=== PATIENT | female | born 1985 | race Native Hawaiian/Other Pacific Islander ===

== ENCOUNTER 2016-08-16 10:26 | Emergency (ER) | payer OTHER ==
[~2016-08-16] VITALS: Ht 160 cm; Wt 72.6 kg
[2016-08-16 13:49] VITALS: BP 136/80; TEMP 98.1
== END 2016-08-16 13:56 | disposition home or self-care (01) ==
LOC: ED 10:26
PROC: 2W3LX1Z Immobilization of Right Lower Extremity using Splint (ICD-10-PCS; principal; 2016-08-16)
DX: S82.191A Other fracture of upper end of right tibia, initial encounter for closed fracture (principal); W18.39XA Other fall on same level, initial encounter; Y93.89 Activity, other specified; Y92.098 Other place in other non-institutional residence as the place of occurrence of the external cause
CPT/HCPCS: 99283; L1830

== ENCOUNTER 2016-11-08 09:30 | Inpatient (IN) | payer OTHER ==
[2016-11-08] VITALS (21 sets, daily range): BP systolic 92–137; BP diastolic 36–75; TEMP 97.5–98.4; Ht 157.5 cm; Wt 70.8 kg
[~2016-11-08] VITALS: Ht 157.5 cm; Wt 70.8 kg
[2016-11-08 10:13] LABS: PLATELET COUNT 220 K/uL (152-353)
[2016-11-08 10:31] LABS: POTASSIUM 2.6 mmol/L (3.6-5.2); SODIUM 133 mmol/L (136-145)
--- NOTE | 2016-11-08 12:30 | NUR ---
RECEIVED PT FROM ER VIA STRETCHER. PT DROWSY, PT HELPED STAFF MOVE TO ICU BED. PT'S SKIN DIAPHORETIC. FSBS <20. 1AMP OF D50 GIVEN. PLACED PT ON ICU MONITORS. SR NOTED. PT HAS A 20G IV IN L HAND WITH D5NS INFUSING @ 175ML/HR. PT HAS A LE TO BSD WITH CLOUDY YELLOW URINE. WILL NOTIFY DR. HANSEN.
--- NOTE | 2016-11-08 13:15 | NUR ---
DR. HANSEN NOTIFIED PER BRE TAVERAS RN. NEW ORDERS RECEIVED.
--- NOTE | 2016-11-08 14:28 | NUR ---
FSBS <20. D50 GIVEN 1 AMP.
[2016-11-08 14:51] LABS: POTASSIUM 2.5 mmol/L (3.6-5.2); SODIUM 137 mmol/L (136-145)
--- NOTE | 2016-11-08 15:00 | NUR ---
LAB RESULT BACK BMP GLUCOSE 31 POTASSIUM 2.5 NOTOIFIED PHARMACY. D 10NS INFUSING AT 175 ORDERED. PT RESTING QUIETLY WILL RESPOND TO VERBAL. FAMILY MEMBERS CHECKED AT DOOR NO VISITORS AT THIS TIME.
--- NOTE | 2016-11-08 16:14 | NUR ---
PT RESTING QUIETLY. IV FLUIDS INFUSING WITHOUT DIFFICULTY. PT EASY TO AWAKEN, BLOOD SUGAR 28. PT RECIEVED 1 AMP D50. PT ALSO RECIEVED CANDY AND HONEY BUN. TAKING A FEW BITES. WILL MONITOR CLOSELY.
--- NOTE | 2016-11-08 17:15 | NUR ---
PT RESTING QUIETLY BLOOD SUGAR 133. IV FLUIDS CONTINUE WITHOUT DIFFICULTY.
[2016-11-08 18:00] LABS: SODIUM 138 mmol/L (136-145)
--- NOTE | 2016-11-08 18:00 | NUR ---
DR HANSEN VISITED CHECKED PT RECIEVED ORDERS. PT RESTING QUIETLY. ATE ABOUT HALF SUPPER TRAY HAROLDO WELL. SAT 100% ON ROOM AIR. NO ACUTE RESP PROBLEMS NOTED.
--- NOTE | 2016-11-08 19:15 | NUR ---
BLOOD SUGAR 120, REPORT TO ONCOMING SHIFT. D10 NS CONTINUES INFUSING AT 175 ML HR.
--- NOTE | 2016-11-08 19:30 | NUR ---
RCD PT AWAKE ALERT WATCHING TV SANDRA LE SR RM AIR RESTING O2 SAT 100.
--- NOTE | 2016-11-08 20:00 | NUR ---
FSBS 122 RESP STARTED COOL AEROSAL HAROLDO MONITOR SR. ALERT WATCHING TV. DR HANSEN CALLED [facility].
--- NOTE | 2016-11-08 21:00 | NUR ---
FSBS 89 AWAKE/ALERT GIVEN 120CC APPLE JUICE.MONITOR SR COOL AEROSAL CONTINUES.
--- NOTE | 2016-11-08 22:00 | NUR ---
AWAKE /ALERT FSBS 84 ATE 1/2 CINNAMON BUN AND COKE. BLOOD DRAWN TO LAB HAROLDO MONITOR SR CONT ON COOL AEROSAL.
[2016-11-08 22:27] LABS: POTASSIUM 3.8 mmol/L (3.6-5.2); SODIUM 138 mmol/L (136-145)
--- NOTE | 2016-11-08 23:09 | NUR ---
FSBS 65 AWAKE ALERT ATE CINNAMON CAKE/APPLE JUICE MONITOR 103 GETTING ANXOU S TO BE AWAKEN EACH HOUR FOR BS.
[2016-11-09] VITALS (21 sets, daily range): BP systolic 96–136; BP diastolic 51–77; TEMP 98.2–98.7
--- NOTE | 2016-11-09 | NUR ---
AWAKE ALERT SKIN WARM/DRY FSBS 62 DRANK 120CC APPLE JUICE MONITOR SR,O2 SAT 100,RESTING.
--- NOTE | 2016-11-09 01:07 | NUR ---
AWAKE ALERT FSBS 237 SKIN WARM/DRY RESTING WILL MONITOR CLOSE
--- NOTE | 2016-11-09 02:00 | NUR ---
LAB DRAWN BS 59 C/O PAIN AT IV SITE NEW IV 20 G X3 R FA RESTARTED DEXTROSE 50% 1AMP.WARM COMPRESSES STARTED TO L FA
[2016-11-09 02:28] LABS: POTASSIUM 3.7 mmol/L (3.6-5.2); SODIUM 138 mmol/L (136-145)
--- NOTE | 2016-11-09 03:18 | NUR ---
DR JADE SHIRLEY BS 56 ASYMPTOMATIC APPLE JUICE 150 CC GIVEN IV PATENTWILL RECHECK 30MIN.
--- NOTE | 2016-11-09 03:30 | NUR ---
FSBS 73 ASYMPTOMATIC ALERT ORIENTED SKIN WARM/DRY WARM COMPRESSES L ARM AND ELEVATED RESTING WATCHING TV
--- NOTE | 2016-11-09 04:00 | NUR ---
FSBS 72 ALERT RESTING IV PATENT WARM COMPRESSES L ARM
--- NOTE | 2016-11-09 04:26 | NUR ---
WARM COMPRESSED TAKEN OFF SWELLING LESS ELEVATED ON PILLOW MONITOR SR, O2 SAT 99 COOL MIST OFF TEMPORARY
--- NOTE | 2016-11-09 05:00 | NUR ---
FSBS 52 DIAPHORETIC ALERT MONITOR SR O2 SAT 99 .IV IN L HAND D/C ELEVATED ON PILLOWS LESS SWELLING BUT CONT TO HURT WHEN TOUCHED.
--- NOTE | 2016-11-09 06:00 | NUR ---
FSBS 50 DEXTROSE 50% 25CC IV DRANK 120CC APPLE JUICE ALERT SKIN WARM DRY OUTPUT 800CC CLOUDY YELLOW URINE
--- NOTE | 2016-11-09 06:29 | NUR ---
LAB UNSUCCESFUL DRAWING BLOOD WILL CONT TO TRY.
--- NOTE | 2016-11-09 07:03 | NUR ---
blood drawn TOLAB FSBS 87
[2016-11-09 07:23] LABS: PLATELET COUNT 200 K/uL (152-353)
[2016-11-09 07:54] LABS: POTASSIUM 3.8 mmol/L (3.6-5.2); SODIUM 138 mmol/L (136-145)
--- NOTE | 2016-11-09 09:00 | NUR ---
AM ASSESSEMENT DONE. DR HANSEN CALLED RECIEVED REPORT PT CONDITION. IV FLUIDS CONTINUE, BLOOD SUGAR 46. PT EATING BREAKFAST D10 CONTINUES AT 150 ML HR WILL HOLD D50 NOW AND CONTINUE TO ENCOURAGE PT TO EAT.
--- NOTE | 2016-11-09 11:37 | NUR ---
PT ATE WELL BLOOD SUGAR 93. IV FLUIDS AT 150. RESTING QUIETLY AWAKENS TO VERBAL. FAMILY CALLED CONTINUE TO HOLD VISITATION.
--- NOTE | 2016-11-09 13:49 | NUR ---
ATE 75% LUNCH TRAY HAROLDO WELL. BMP/MG OBTAINED AT THIS TIME. PT RESTING QUIETLY AWAKENS EASILY. EATING WELL.
[2016-11-09 13:58] LABS: POTASSIUM 4.2 mmol/L (3.6-5.2); SODIUM 138 mmol/L (136-145)
--- NOTE | 2016-11-09 14:53 | NUR ---
BMP AND MAG RESULTS BACK. CALLED TO PHARMACY, WILL NEED TO CONTINUE D10 NS. MAY ADJUST RATE. PT'S BLOOD SUGAR MAY STILL GO DOWN. CURRENT BLOOD SUGAR 73. PT SLEEPING WILL WAKE PT UP TO TAKE A SNACK.
--- NOTE | 2016-11-09 17:28 | NUR ---
ATE JELLO DRINKING JUICE. D10NS CONTINUES AT 150 ML HR. BLOOD SUGAR 71. PT'S FAMILY STOPPED BY, WANTED TO KNOW HOWSHE WAS DOING. DID NOT COME IN TO VISIT. PT STILL NOT ALLOW TO HAVE ANY VISITORS.
--- NOTE | 2016-11-09 18:38 | NUR ---
DR HANSEN VISITED, CHECKED PT RECIEVED NEW ORDERS IV FLUIDS TURNED DOWN TO 100 ML HR. CONTINUE TO ENCOURAGE PT TO EAT AND TAKE PO FLUIDS.
--- NOTE | 2016-11-09 19:06 | NUR ---
D10 NS AT 100 ML HR. BLOOD SUGAR 65. PT TAKING SIPS APPLE JUICE. WILL ALSO TAKE 1 CAN ENSURE PLUS. CONTINUE TP MONITOR.
[2016-11-10] VITALS (18 sets, daily range): BP systolic 102–132; BP diastolic 54–84; TEMP 98.1–98.4
[2016-11-10 05:58] LABS: POTASSIUM 4.2 mmol/L (3.6-5.2); SODIUM 138 mmol/L (136-145)
--- NOTE | 2016-11-10 06:47 | NUR ---
0500 NEW IV STARTED DUE TO PAIN AND EDEMA IN RIGHT HAND IV SITE IN RIGHT HAND SALINE LOCKED GOOD BLOOD RETURN STILL TO SITE WARM COMPRESS ADDED TO HAND.
[2016-11-10 07:06] LABS: PLATELET COUNT 216 K/uL (152-353)
--- NOTE | 2016-11-10 09:22 | NUR ---
PT UP TO BR.GAIT STEADY.
--- NOTE | 2016-11-10 14:40 | NUR ---
Joseph Arceo, Hospital Pharmacist, at bedside assessing Pt. She ordered Pt's D10 fluids be reduced to 50ml for 1 hour. If Pt's blood sugar maintains, reduce D10 to 25ml/hr for 1 hour. If Pt's blood sugar maintains, fluids may be d/c'd noted and carried out. D10 reduced to 50ml/hr at this time. Will continue to monitor blood sugar and Patient.
--- NOTE | 2016-11-10 15:40 | NUR ---
Assisted Pt to up to bedside chair with no difficulties. Andrea arms propped on pillows, warm compresses placed on andrea arms, andrea feet propped on pillows. Pt v/o her appreciation for helping her get out of the bed. Linens changed at this time.
--- NOTE | 2016-11-10 15:50 | NUR ---
Pt's blood sugar is 143. Pt's D10 rate is decreased to 25ml/hr. Pt tolerating well. Will continue to monitor Pt.
--- NOTE | 2016-11-10 16:55 | NUR ---
Pt's blood sugar is 137. IV fluids d/c'd at this time. Pt heplocked. Pt expressed her appreciation.
--- NOTE | 2016-11-10 18:10 | NUR ---
Dr. Juarez at bedside and ordered bladder training to begin at this time. Order noted and carried out and bladder training began at this time.
--- NOTE | 2016-11-10 19:40 | NUR ---
Dr. Juarez at bedside and ordered bladder tranning to be started at this time, v/o understanding and acknowledged same.
--- NOTE | 2016-11-10 20:15 | NUR ---
Bladder training completed at this time. Pt tolerated well.
--- NOTE | 2016-11-10 21:10 | NUR ---
Shelia d/keaton'lacey at this time. Pt tolerated well and expressed the relief she feels.
--- NOTE | 2016-11-10 22:14 | NUR ---
Dr. Juarez notified of pt's blood glucose level. Orders given to change to Q4 hours at this time.
--- NOTE | 2016-11-10 23:21 | NUR ---
Pt resting in bed. No distress noted. VSS per monitor. Will continue to monitor.
[2016-11-11] VITALS (11 sets, daily range): BP systolic 104–131; BP diastolic 41–85; TEMP 98–98.2
--- NOTE | 2016-11-11 00:58 | NUR ---
Pt resting in bed with eyes closed. No change in assessment. Will continue to monitor.
[2016-11-11 07:11] LABS: PLATELET COUNT 221 K/uL (152-353)
[2016-11-11 07:30] LABS: POTASSIUM 4.4 mmol/L (3.6-5.2); SODIUM 140 mmol/L (136-145)
--- NOTE | 2016-11-11 08:00 | NUR ---
RESTING OK THIS AM. CHECKED IV HL FLUSHED PT STATED THAT THEY HURT REAL BAD, PULLED AWAY NOTED SWELLING IN BOTH ARMS IV HEPLOCK REMOVED NO REDNESS NO SIGNS OF INFECTION AT SITE, WILL HOLD RESTART UNTIL I CAN TALK WITH DR HANSEN. PT ATE SOME BREAKFAST HAROLDO WELL BLOOD SUGAR 99 THIS AM.
--- NOTE | 2016-11-11 11:15 | NUR ---
DR HANSEN CALLED RECIEVED REPORT, RECIEVED NEW ORDERS MAY LEAVE IV OUT. CHANGED MEDS TO PO.
--- NOTE | 2016-11-11 13:15 | NUR ---
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 [facility]. PT UP IN ROOM VISITORS ALLOWED MOTHER VISITED. GOING TO BR. APPEARS TO BE DOING BETTER. BLOOD SUGAR 105, PT EATING WELL.
--- NOTE | 2016-11-11 13:30 | NUR ---
CALLED TO [facility], SPOKE WITH RADHA, RECIEVED REPORT, ASKED SEVERAL QUESTIONS. WAS TOLD THAT SINCE PT HAD INSURANCE THAT I COULD CALLED AND SEEK PLACEMENT. RADHA GAVE ME THE NAME AND PHONE NUMBERS OF [facility].
--- NOTE | 2016-11-11 14:00 | NUR ---
CALLED BACK TO MADDI DERAS AT [facility] INFORMED HER ABOUT CRISIS CENTER, WAS TOLD THAT PT'S FAMILY AND PROBATE MAY HAVE FOUND PLACEMENT. CALLED TO DR HANSEN, IN FORMED HER ABOUT PLACEMENT, STATED THAT PT WAS MEDICALLY CLEAR TO GO. ALSO ASKED IF THEY TREATED SUICIDE. TOLD DR HANSEN THAT I WOULD CALL TO FIND OUT.
--- NOTE | 2016-11-11 15:00 | NUR ---
HAVE CALLED [facility] FROM [facility] IN [place] NO ANSWER. TALK WITH PT AND HER GRANDMOTHER. WHOM HAVE ASSISTED [facility] IN FINDING PLACEMENT. RECIEVED COPY/ INFORMATION ABOUT REHAB CENTER, COPY ON CHART.
--- NOTE | 2016-11-11 15:30 | NUR ---
ASKED [facility] FOR ASSISTANCE. TO ASSIT WITH PHONE CALLS. PT UP IN ROOM NO COMPLAINTS ON PHONE TALKING WITH FAMILY MEMBERS.
--- NOTE | 2016-11-11 17:09 | NUR ---
SPOKE WITH CAROLYN AGAIN HAS NOT BEEN ABLE TO TALK WITH ANYONE. SPOKE WITH FAMILY. TOLD PT THAT SHE WOULD HAVE TO STAY IN ICU IF PLACEMENT COULD NOT BE FOUND TODAY.
--- NOTE | 2016-11-11 17:48 | NUR ---
TALKED WITH YAZMIN, ABOUT PT TRANSFER, CALLED TO PT'S MOTHER. SHE TOLD YAZMIN THAT HER DAUGHTER HAS A COURT APPOINT PLACEMENT.
--- NOTE | 2016-11-11 18:20 | NUR ---
RECIEVED ORDERS TO DISCHARGE PT, [facility] HERE, RECIEVED REPORT RECIEVED ORG 10-13, FACE SHEET AND DR HANSEN PROGRESS NOTES. PT WAS UP OUT OF BED ALLOWED TO TAKE SHOWER ESCORT BY FEMALE CODING COMPLIANCE MANAGER. DID WELL, WAS ABLE TO TALK WITH FAMILY, DISCHARGED VIA PATROL [facility].
== END 2016-11-11 18:20 | disposition other institution (70) | DRG 918 ==
LOC: ED 09:30 → ICU 11:40
PROVIDERS: ADMIT Family Medicine
DX: T38.3X2A Poisoning by insulin and oral hypoglycemic [antidiabetic] drugs, intentional self-harm, initial encounter (principal); X83.8XXA Intentional self-harm by other specified means, initial encounter; Y92.89 Other specified places as the place of occurrence of the external cause; F41.8 Other specified anxiety disorders; E16.1 Other hypoglycemia; E87.6 Hypokalemia; R60.9 Edema, unspecified; T20.07XA Burn of unspecified degree of neck, initial encounter; Z72.0 Tobacco use
CPT/HCPCS: 36415; 36600; 80048; 80053; 80307; 80320; 80329; 81000; 82550; 82805; 82962; 83036; 83735; 84100; 85027; 94760; 96361; 96372; 96374; 96376; 99285; G0479; J1650; J3475; J3480; J3490; J7060

== ENCOUNTER 2016-11-09 09:09 | Outpatient (CLI) | payer OTHER | END 2016-11-09 09:28 | disposition short-term general hospital (02) | LOC: AMB 09:09 | DX: S10.83XA Contusion of other specified part of neck, initial encounter (principal); S00.83XA Contusion of other part of head, initial encounter; X83.8XXA Intentional self-harm by other specified means, initial encounter; T43.622A Poisoning by amphetamines, intentional self-harm, initial encounter; T38.3X2A Poisoning by insulin and oral hypoglycemic [antidiabetic] drugs, intentional self-harm, initial encounter; Y92.096 Garden or yard of other non-institutional residence as the place of occurrence of the external cause | CPT/HCPCS: A0425; A0427 ==

== ENCOUNTER 2016-12-07 10:11 | Emergency (ER) | payer OTHER ==
[~2016-12-07] VITALS: Ht 160 cm; Wt 77.1 kg
[2016-12-07 10:15] VITALS: TEMP 98.6
[2016-12-07 11:46] VITALS: BP 137/84
== END 2016-12-07 11:47 | disposition home or self-care (01) ==
LOC: ED 10:11
DX: R07.81 Pleurodynia (principal); V80.010A Animal-rider injured by fall from or being thrown from horse in noncollision accident, initial encounter; Y92.098 Other place in other non-institutional residence as the place of occurrence of the external cause
CPT/HCPCS: 96372; 99283; J1885

== ENCOUNTER 2018-04-08 10:30 | Emergency (ER) | payer OTHER ==
[~2018-04-08] VITALS: Ht 160 cm; Wt 84.4 kg
[2018-04-08 10:36] VITALS: TEMP 98.6
[2018-04-08 10:57] LABS: PLATELET COUNT 211 K/uL (152-353)
[2018-04-08 13:31] VITALS: BP 138/89
== END 2018-04-08 13:32 | disposition short-term general hospital (02) ==
LOC: ED 10:30
PROC: 0T9B70Z Drainage of Bladder with Drainage Device, Via Natural or Artificial Opening (ICD-10-PCS; principal; 2018-04-08)
DX: S32.019A Unspecified fracture of first lumbar vertebra, initial encounter for closed fracture (principal); S22.089A Unspecified fracture of T11-T12 vertebra, initial encounter for closed fracture; W17.89XA Other fall from one level to another, initial encounter
CPT/HCPCS: 36415; 51702; 80053; 80307; 80320; 81000; 85027; 96374; 96375; 99285; J1885; J2175

== ENCOUNTER 2018-12-29 12:03 | Emergency (ER) | payer OTHER ==
[~2018-12-29] VITALS: Ht 160 cm; Wt 72.6 kg
[2018-12-29 12:12] VITALS: TEMP 100.8
[2018-12-29 12:41] LABS: PLATELET COUNT 247 K/uL (152-353)
[2018-12-29 12:53] LABS: POTASSIUM 4.1 mmol/L (3.6-5.2)
[2018-12-29 14:32] VITALS: BP 135/88
== END 2018-12-29 14:32 | disposition home or self-care (01) ==
LOC: ED 12:03
PROVIDERS: Family Medicine
DX: F19.10 Other psychoactive substance abuse, uncomplicated (principal)
CPT/HCPCS: 80053; 80074; 80307; 80320; 80329; 81000; 81025; 85027; 99283

== ENCOUNTER 2021-12-23 14:31 | Outpatient (CLI) | payer OTHER | END 2021-12-23 19:05 | disposition home or self-care (01) | LOC: RAD 14:31 | PROVIDERS: ATTEND Nurse Practitioner Primary Care | DX: M79.671 Pain in right foot (principal) ==

== ENCOUNTER 2022-08-01 16:48 | Outpatient (CLI) | payer OTHER ==
[2022-08-01 17:35] LABS: PLATELET COUNT 213 K/uL (152-353)
[2022-08-01 17:50] LABS: POTASSIUM 4.6 mmol/L (3.6-5.2)
== END 2022-08-01 19:01 | disposition home or self-care (01) ==
LOC: LABW 16:48
PROVIDERS: ATTEND Internal Medicine Gastroenterology
DX: B18.2 Chronic viral hepatitis C (principal)
CPT/HCPCS: 36415; 80053; 80074; 82172; 82247; 82248; 82977; 83010; 83883; 84460; 85027; 85610; 87522; 87902